=== PATIENT | male | born 1945 | race African-American/Black ===

== ENCOUNTER 2018-03-30 11:42 | Inpatient (IN) | payer OTHER ==
[~2018-03-30] VITALS: Ht 177.8 cm; Wt 98.0 kg
[2018-03-30 11:44] VITALS: Ht 177.8 cm; Wt 98.0 kg
[2018-03-30 14:11] LABS: BASOPHIL % 0.6 % (0-2)
[2018-03-30 14:19] LABS: PLATELET COUNT 126 x10^3mcL (130-400); RED CELL DISTRIBUTION WIDTH 17.4 % (11.5-14.5)
[2018-03-30 14:22] LABS: CALCIUM 7.4 mg/dL (8.5-10.1); CREATININE SERUM 2.1 mg/dL (0.7-1.3)
[2018-03-30 14:27] LABS: BILIRUBIN TOTAL 0.26 mg/dL (0.20-1.00); TOTAL PROTEIN, SERUM 7.3 g/dL (6.4-8.2)
[2018-03-30 14:29] LABS: ALBUMIN 2.2 g/dL (3.4-5.0)
[2018-03-30 15:43] LABS: MAGNESIUM 2.1 mg/dL (1.8-2.4)
[2018-03-30 16:07] LABS: CHOLESTEROL/HDL RATIO 1.8
[2018-03-30] MEDS ORDERED: DUEXIS1 TAB PO (16:12)
[2018-03-30] MEDS ORDERED: ARANESP0.5 MG/ML SQ (16:13)
[2018-03-30] MEDS ORDERED: LEVOTHYROXIN0.125 M2 PO (16:15)
[2018-03-30] MEDS ORDERED: [UNRECOGNIZED DRUG - CODE] ID (16:16)
[2018-03-30] MEDS ORDERED: NOR10 PO (16:17)
[2018-03-30] MEDS ORDERED: DILANTIN100 MG PO (16:17)
[2018-03-30] MEDS ORDERED: D-20001 TAB PO (16:18)
[2018-03-30] MEDS ORDERED: POTASSIUM CHLO20 ME1 PO (16:18)
[2018-03-30] MEDS ORDERED: VALPROIC A500 MG/10 PO (16:19)
[2018-03-30] MEDS ORDERED: LACTULOSE10 GM/152 PO (16:19)
[2018-03-30] MEDS ORDERED: CORE25 PO (16:19)
[2018-03-30] MEDS ORDERED: KEPPRA500 MG PO (16:20)
[2018-03-30] MEDS ORDERED: CALCITRIOL0.5 MCG PO (16:20)
[2018-03-30] MEDS ORDERED: HYDRALAZINE HCL50 MG PO (16:23)
[2018-03-30] MEDS ORDERED: ELIQUIS2.5 MG PO (16:23)
[2018-03-30] MEDS ORDERED: ISOSORBIDE MONO30 MG PO (16:24)
[2018-03-30] MEDS ORDERED: ALBUTEROL0.63 MG/3 NEB (16:24)
[2018-03-30] MEDS ORDERED: CALCIUM CARBONAT1 GM PO (16:26)
[2018-03-30] MEDS ORDERED: LIPI20 PO (16:27)
[2018-03-30] MEDS ORDERED: CATAPRES0.1 MG PO (16:27)
[2018-03-30 17:45] VITALS: BP 130/72
[2018-03-30 21:20] VITALS: BP 144/77
[2018-03-31 05:28] VITALS: BP 152/85
[2018-03-31 07:39] LABS: CALCIUM 7.7 mg/dL (8.5-10.1); CARBON DIOXIDE 29.5 mmol/L (21-32); CREATININE SERUM 2.1 mg/dL (0.7-1.3); POTASSIUM SERUM 5.3 mmol/L (3.5-5.1)
[2018-03-31 08:18] LABS: PLATELET COUNT 164 x10^3mcL (130-400)
[2018-03-31 08:20] LABS: BASOPHIL % 0 % (0-2); RED CELL DISTRIBUTION WIDTH 17.6 % (11.5-14.5)
[2018-03-31 09:22] VITALS: BP 142/80
[2018-03-31 13:50] VITALS: BP 161/87
[2018-03-31 17:48] VITALS: BP 154/89
[2018-03-31 21:08] VITALS: BP 145/85
[2018-04-01 05:09] VITALS: BP 151/85
[2018-04-01 09:04] VITALS: BP 158/84
[2018-04-01 12:46] VITALS: BP 153/99
[2018-04-01 17:44] VITALS: BP 168/84
[2018-04-01 20:53] VITALS: BP 164/80
[2018-04-02] VITALS (7 sets, daily range): BP systolic 170–189; BP diastolic 90–106
[2018-04-03 06:05] VITALS: BP 157/82
[2018-04-03 10:02] VITALS: BP 113/41; BP 176/87
[2018-04-03 10:26] LABS: PLATELET COUNT 162 x10^3mcL (130-400); RED CELL DISTRIBUTION WIDTH 16.6 % (11.5-14.5)
[2018-04-03 10:34] LABS: BILIRUBIN TOTAL 0.33 mg/dL (0.20-1.00); CALCIUM 6.9 mg/dL (8.5-10.1); CARBON DIOXIDE 39.1 mmol/L (21-32); CREATININE SERUM 1.8 mg/dL (0.7-1.3); POTASSIUM SERUM 3.6 mmol/L (3.5-5.1); TOTAL PROTEIN, SERUM 7.5 g/dL (6.4-8.2)
[2018-04-03 10:37] LABS: ALBUMIN 2.3 g/dL (3.4-5.0)
[2018-04-03 11:21] LABS: ATYPICAL LYMPH 3 %; BAND NEUTROPHIL 0 % (0-10); BASOPHIL 0 % (0-2); MONOCYTE 3 % (0-7); SEGMENTED NEUTROPHILS 91 % (37-75)
[2018-04-03 11:22] LABS: PLATELET MORPHOLOGY PLATELETS DECREASED; rbc morphology (normal/abnorm) ABNORMAL (NORMAL)
[2018-04-03 13:50] VITALS: BP 152/91
[2018-04-03 17:07] VITALS: BP 158/77
[2018-04-03 20:29] VITALS: BP 154/89
[2018-04-04 05:21] VITALS: BP 150/89
[2018-04-04 06:35] LABS: BASOPHIL % 0.2 % (0-2); PLATELET COUNT 145 x10^3mcL (130-400)
[2018-04-04 06:49] LABS: CARBON DIOXIDE 37.8 mmol/L (21-32); CREATININE SERUM 1.7 mg/dL (0.7-1.3); POTASSIUM SERUM 3.8 mmol/L (3.5-5.1)
[2018-04-04 06:54] LABS: RED CELL DISTRIBUTION WIDTH 16.8 % (11.5-14.5)
[2018-04-04 09:49] VITALS: BP 166/89
[2018-04-04 12:45] VITALS: BP 161/85
[2018-04-04 17:00] VITALS: BP 157/87
[2018-04-04 21:09] VITALS: BP 156/74
[2018-04-05 05:36] VITALS: BP 149/82
[2018-04-05 09:37] VITALS: BP 162/84
[2018-04-05 13:28] VITALS: BP 146/75
[2018-04-05 17:08] VITALS: BP 146/75
[2018-04-05 17:15] VITALS: BP 152/78
[2018-04-05 21:34] VITALS: BP 142/77
[2018-04-06 06:17] VITALS: BP 142/75
[2018-04-06 06:44] LABS: CALCIUM 6.9 mg/dL (8.5-10.1); CREATININE SERUM 1.8 mg/dL (0.7-1.3)
[2018-04-06 06:47] LABS: BASOPHIL % 0.2 % (0-2); PLATELET COUNT 141 x10^3mcL (130-400)
[2018-04-06 06:59] LABS: RED CELL DISTRIBUTION WIDTH 16.5 % (11.5-14.5)
[2018-04-06 08:07] LABS: CARBON DIOXIDE 40.6 mmol/L (21-32)
[2018-04-06 08:46] VITALS: BP 146/75
[2018-04-06 11:45] VITALS: BP 145/83
[2018-04-06 16:20] VITALS: BP 104/55
[2018-04-06 21:53] VITALS: BP 140/78
[2018-04-07 05:40] VITALS: BP 150/83
[2018-04-07 07:06] LABS: CALCIUM 6.8 mg/dL (8.5-10.1); CARBON DIOXIDE 35.7 mmol/L (21-32); CREATININE SERUM 1.8 mg/dL (0.7-1.3)
[2018-04-07 07:11] LABS: POTASSIUM SERUM 5.6 mmol/L (3.5-5.1)
[2018-04-07 08:58] VITALS: BP 171/87
[2018-04-07 09:10] LABS: BASOPHIL % 0.2 % (0-2)
[2018-04-07 09:14] LABS: PLATELET COUNT 80 x10^3mcL (130-400); RED CELL DISTRIBUTION WIDTH 16.7 % (11.5-14.5)
[2018-04-07 10:12] VITALS: BP 149/83
[2018-04-07 14:42] VITALS: BP 165/89
[2018-04-07 16:42] VITALS: BP 146/57
[2018-04-08] VITALS (7 sets, daily range): BP systolic 113–152; BP diastolic 52–81
[2018-04-08 12:27] LABS: UA SPECIFIC GRAVITY 1.015 (1.005-1.035); microscopic required? YES; urine erythrocyte NEGATIVE (NEGATIVE)
[2018-04-08 12:31] LABS: AMPHETAMINE QUAL UR NONE DETECTED (See below)
[2018-04-08 14:37] LABS: CREATININE SERUM 1.7 mg/dL (0.7-1.3); POTASSIUM SERUM 4.3 mmol/L (3.5-5.1)
[2018-04-08 14:40] LABS: CARBON DIOXIDE 42.7 mmol/L (21-32)
== END 2018-04-08 21:30 | DRG 314 ==
LOC: ED 11:42 → DU 15:16
PROVIDERS: Emergency Medicine; Internal Medicine; ADMIT Internal Medicine
PROC: 05HM33Z Insertion of Infusion Device into Right Internal Jugular Vein, Percutaneous Approach (ICD-10-PCS; principal; 2018-04-04)
PROC: B543ZZA Ultrasonography of Right Jugular Veins, Guidance (ICD-10-PCS; 2018-04-04)
DX: I27.20 Pulmonary hypertension, unspecified (principal); J96.21 Acute and chronic respiratory failure with hypoxia; J96.02 Acute respiratory failure with hypercapnia; J18.9 Pneumonia, unspecified organism; I50.43 Acute on chronic combined systolic (congestive) and diastolic (congestive) heart failure; I13.0 Hypertensive heart and chronic kidney disease with heart failure and stage 1 through stage 4 chronic kidney disease, or unspecified chronic kidney disease; N18.3 Chronic kidney disease, stage 3 (moderate); E11.22 Type 2 diabetes mellitus with diabetic chronic kidney disease; I48.91 Unspecified atrial fibrillation; I25.10 Atherosclerotic heart disease of native coronary artery without angina pectoris; J44.9 Chronic obstructive pulmonary disease, unspecified; E78.5 Hyperlipidemia, unspecified; E03.9 Hypothyroidism, unspecified; Z68.31 Body mass index [BMI] 31.0-31.9, adult; Z86.73 Personal history of transient ischemic attack (TIA), and cerebral infarction without residual deficits; Z79.82 Long term (current) use of aspirin
CPT/HCPCS: 36600; 83880; 94150; 97110-GP; C1751; J1642; J1644; J1940; J1956; J2270; J2543; J2920; J3490; J7030; J7040; J7512; J7620; J7626; Q0092